=== PATIENT | male | born 1985 | race American Indian/Alaskan Native ===

== ENCOUNTER 2017-02-22 10:02 | Emergency (ER) | payer BC ==
[2017-02-22 10:18] VITALS: BP 135/69
--- NOTE | 2017-02-22 11:05 | Emergency Department Report ---
HPI - General Chief Complaint: High BP Time Seen by Provider: 02/22/17 10:27 - HPI HPI: Patient here reports that he has a headache and is feeling tired. Patient is a employee at the hospital. He said he is concerned about his blood pressure and states he was blowing his nose this morning and and noted some nasal drainage with blood in it. Patient said he does not have high blood pressure but this morning they took it and it was elevated. His blood pressure now is 135/69. Nosebleed was very minimal from his left near and he said his nose was dry and he was blowing his nose. He currently denies any headache, chest pain, dizziness or visual difficulties. Denies any shortness of breath. He said his headache was to the front of his head and it was 5 out of 10. Patient states that his primary care physician is Dr. Larson. Patient does have a family history of high blood pressure. ED Past Medical Hx - Past Medical History Previous Medical History?: No - Surgical History Past Surgical History?: Yes Additional Surgical History: abscess from back - Family History Family history: hypertension - Social History Smoking Status: Never Smoker Substance Use Type: Non Opiate Pain - Medications Home Medications: Home Medications Medication Instructions Recorded Confirmed Last Taken Type HYDROcodone/APAP 5-325 [[place] 1 each PO Q6HR PRN #24 tablet 02/25/16 03/09/16 Unknown Rx 5/325] Ibuprofen 800 mg PO PRN 02/25/16 03/09/16 02/24/16 19:00 History 800mg Sulfamethoxazole/Trimethoprim 1 each PO QDAY 03/09/16 03/09/16 Unknown History [Bactrim 400-80 mg] ED Review of Systems ROS: Stated complaint: ELEVATED BLOOD PRESSURE Other details as noted in HPI Comment: All other systems reviewed and negative Constitutional: malaise. denies: chills, fever ENT: epistaxis (episodiccepisodi) Respiratory: no symptoms reported Cardiovascular: denies: chest pain, palpitations, dyspnea on exertion, edema, syncope, paroxysmal nocturnal dyspnea Gastrointestinal: denies: abdominal pain, nausea, vomiting, diarrhea, constipation Musculoskeletal: denies: back pain, arthralgia, myalgia Skin: denies: rash Neurological: headache. denies: numbness, paresthesias, confusion, abnormal gait, vertigo Physical Exam - Physical Exam Vital Signs: Vital Signs 02/22/17 10:13 Temperature 98.6 F Pulse Rate 65 Respiratory 18 Rate Blood Pressure 135/69 O2 Sat by Pulse 98 Oximetry General: This is a 31-year-old obese male that is nontoxic in appearance. Physical Exam: Head: Normocephalic, atraumatic, no abrasion, no bruising and no contusion. Eyes: Biateral pupils equal and reactive to light, bilateral EOM intact.. Bilateral conjunctival and sclera without injection, normal accommodation. No nystagmus Nose: Normal mucosa without any bleeding. Moist. No maxillary or frontal sinus tenderness. Neurological: GCS at 15, Pt is alert and oriented 3 speech is clear period. Bilateral hand hog feeder strong and equal. Normal gait. Negative Romberg and no pronator drift. Normal Reflexes. No motor or sensory deficit Neck: Supple, No Cervical adenopathy, full range of motion and no C-spine tenderness. No swelling or tracheal deviation normal reflexes Back: No vertebral tenderness, no paraspinal tenderness. Ambulates without any difficulties. Cardiovascular: S1, S2. Regular rate and rhythm. No murmur. Capillary refill is less then 3 seconds. Lungs: Clear to auscultate bilaterally. No rhonchi, wheezes or rales. No chest wall tenderness MSK: Strength 5/5 in all extremities. No joint deformity or crepitus. Normal inspection. Full range of motion to all extremities Extremities: No clubbing, cyanosis or edema. +2 pulses. No neurovascular compromise Skin: Clean, dry and intact. No rash or lesions. ED Course Vital Signs 02/22/17 10:13 Temperature 98.6 F Pulse Rate 65 Respiratory 18 Rate Blood Pressure 135/69 O2 Sat by Pulse 98 Oximetry - Reevaluation(s) Reevaluation #1: 02/22/17 11:57 Vision stable throughout ED stay. ED Medical Decision Making - Medical Decision Making ED course: Pt here report that his blood pressure was elevated today and he had one episode of blood in his nasal drainage. He is also complaining that he had headache this morning but upon examination he said his headache was gone. Patient is neurologically intact and his blood pressure stabilized. He does have a family history of high blood pressure coupled with morbid obesity. I discussed with patient that he needs to get him an appointment with his primary care physician and take his blood pressure in the morning and keep a log to take to his primary care visit for evaluation. With him about healthy hard and low-sodium diet with exercise and weight loss. Patient discharged home in stable condition to follow up with his primary care doctor. Critical care attestation.: If time is entered above; I have spent that time in minutes in the direct care of this critically ill patient, excluding procedure time. ED Disposition Clinical Impression: Elevated blood pressure reading, Epistaxis, Obesity, Class III, BMI 40-49.9 ( morbid obesity), Frontal headache Disposition: DC-01 TO HOME OR SELFCARE Is pt being admited?: No Does the pt Need Aspirin: No Condition: Stable Instructions: DASH Eating Plan (ED), Low Sodium Diet (ED), Hypertension (ED), Heart Healthy Diet (ED), Weight Management (ED), Weight Loss Tips for Athletes ( ED), Obesity (ED) Additional Instructions: He is follow information given on weight loss. Take your blood pressure daily and keep a log and schedule appointments primary care physician in 7 days. Referrals: MERARY LARSON MD [Primary Care Provider] - 03/01/17 Forms: Work/School Release Form(ED)
== END 2017-02-22 12:42 | disposition home or self-care (01) ==
LOC: ED 10:02
DX: R03.0 Elevated blood-pressure reading, without diagnosis of hypertension (principal); R51 Headache; R04.0 Epistaxis; E66.01 Morbid (severe) obesity due to excess calories; Z68.41 Body mass index [BMI] 40.0-44.9, adult
CPT/HCPCS: 99282

== ENCOUNTER 2018-05-08 11:36 | Emergency (ER) | payer BC ==
[2018-05-08 11:46] VITALS: BP 130/87
--- NOTE | 2018-05-08 12:13 | Emergency Department Report ---
ED ENT HPI - General Chief complaint: Dental/Oral Stated complaint: RT SIDE TOOTH PAIN Time Seen by Provider: 05/08/18 11:54 Source: patient Mode of arrival: Ambulatory Limitations: No Limitations - History of Present Illness Initial comments: This is a 32-year-old -[place] male who presents with right upper tooth and jaw pain for 4 days. Patient states he had a chipped tooth that has intermittent pain that has increased over the past 4 days. Patient reports pain is sharp pain. Pain is constant sharp sensation was Monday. He denies dif ficulty swallowing, drooling, fever. MD complaint: tooth pain Onset/Timin -: days(s) Location: tooth # (#1) Severity: moderate Severity scale (0 -10): 3 Quality: aching Consistency: constant Improves with: none Worsens with: eating Context- Dental: history of dental caries Associated Symptoms: gum swelling, toothache. denies: pain with swallowing, sore throat, tinnitus, hearing loss, discharge from ear, rhinorrhea - Related Data Home Medications Medication Instructions Recorded Confirmed Last Taken Ibuprofen 800 mg PO PRN 02/25/16 03/09/16 02/24/16 19:00 800mg Sulfamethoxazole/Trimethoprim 1 each PO QDAY 03/09/16 03/09/16 Unknown [Bactrim 400-80 mg] Previous Rx's Medication Instructions Recorded Last Taken Type HYDROcodone/APAP 5-325 [[place] 1 each PO Q6HR PRN #24 tablet 02/25/16 Unknown Rx 5/325] Clindamycin [Clindamycin CAP] 300 mg PO Q8H #21 cap 05/08/18 Unknown Rx Naproxen [Naprosyn] 500 mg PO BID #15 tablet 05/08/18 Unknown Rx Nystas/Diphen/Xyl Visc/Mylanta 15 ml MM Q4H PRN #100 ml 05/08/18 Unknown Rx [Magic Mouthwash] Allergies Allergy/AdvReac Type Severity Reaction Status Date / Time No Known Allergies Allergy Verified 02/25/16 14:00 ED Dental HPI - General Chief complaint: Dental/Oral Stated complaint: RT SIDE TOOTH PAIN Time Seen by Provider: 05/08/18 11:54 Source: patient Mode of arrival: Ambulatory Limitations: No Limitations - Related Data Home Medications Medication Instructions Recorded Confirmed Last Taken Ibuprofen 800 mg PO PRN 10/03/09/16 02/24/16 19:00 800mg Sulfamethoxazole/Trimethoprim 1 each PO QDAY 03/09/16 03/09/16 Unknown [Bactrim 400-80 mg] Previous Rx's Medication Instructions Recorded Last Taken Type HYDROcodone/APAP 5-325 [[place] 1 each PO Q6HR PRN #24 tablet 02/25/16 Unknown Rx 5/325] Clindamycin [Clindamycin CAP] 300 mg PO Q8H #21 cap 05/08/18 Unknown Rx Naproxen [Naprosyn] 500 mg PO BID #15 tablet 05/08/18 Unknown Rx Nystas/Diphen/Xyl Visc/Mylanta 15 ml MM Q4H PRN #100 ml 05/08/18 Unknown Rx [Magic Mouthwash] Allergies Allergy/AdvReac Type Severity Reaction Status Date / Time No Known Allergies Allergy Verified 02/25/16 14:00 ED Review of Systems ROS: Stated complaint: RT SIDE TOOTH PAIN Other details as noted in HPI Constitutional: denies: chills, fever ENT: dental pain. denies: ear pain, throat pain Respiratory: denies: cough, shortness of breath, wheezing Cardiovascular: denies: chest pain, palpitations Gastrointestinal: denies: abdominal pain, nausea, diarrhea Neurological: denies: headache, weakness, paresthesias Psychiatric: denies: anxiety, depression ED Past Medical Hx - Past Medical History Previous Medical History?: No - Surgical History Past Surgical History?: Yes Additional Surgical History: abscess from back - Social History Smoking Status: Never Smoker Substance Use Type: None - Medications Home Medications: Home Medications Medication Instructions Recorded Confirmed Last Taken Type HYDROcodone/APAP 5-325 [[place] 1 each PO Q6HR PRN #24 tablet 02/25/16 03/09/16 Unknown Rx 5/325] Ibuprofen 800 mg PO PRN 02/25/16 03/09/16 02/24/16 19:00 History 800mg Sulfamethoxazole/Trimethoprim 1 each PO QDAY 03/09/16 03/09/16 Unknown History [Bactrim 400-80 mg] Clindamycin [Clindamycin CAP] 300 mg PO Q8H #21 cap 05/08/18 Unknown Rx Naproxen [Naprosyn] 500 mg PO BID #15 tablet 05/08/18 Unknown Rx Nystas/Diphen/Xyl Visc/Mylanta 15 ml MM Q4H PRN #100 ml 05/08/18 Unknown Rx [Magic Mouthwash] ED Physical Exam - General Limitations: No Limitations General appearance: alert, in no apparent distress, obese (morbidly obese) - ENT ENT exam: Present: mucous membranes moist, TM's normal bilaterally, normal external ear exam, other (dental caries and partial tooth #1, mucosal swelling and tenderness, 3 mm white canker to mucosa area near #1) ED Course Vital Signs 05/08/18 11:43 Temperature 98 F Pulse Rate 77 Respiratory 18 Rate Blood Pressure 130/87 O2 Sat by Pulse 100 Oximetry ED Medical Decision Making - Medical Decision Making This is a 32-year-old male that presents with toothache and canker for 4 days. Patient is stable and was examined by me. Given Magic mouthwash in ER. Susceptible of dental caries #1 and canker. Discussed plan with patient. Start clindamycin, naproxen, and Magic mouthwash. Discharged home stable. Follow up with dentist. Critical care attestation.: If time is entered above; I have spent that time in minutes in the direct care of this critically ill patient, excluding procedure time. ED Disposition Clinical Impression: Dental caries, Toothache, Canker sore Disposition: - TO HOME OR SELFCARE Is pt being admited?: No Does the pt Need Aspirin: No Condition: Stable Instructions: Dental Caries (ED), Canker Sores (ED), Toothache (ED) Additional Instructions: Complete all days of clindamycin as prescribed for 7 days. Avoid drinking alcohol while taking antibiotics for 24 hours of completion. Follow up with in 24-72 hours. Prescriptions: Clindamycin [Clindamycin CAP] 300 mg PO Q8H #21 cap Naproxen [Naprosyn] 500 mg PO BID #15 tablet Nystas/Diphen/Xyl Visc/Mylanta [Magic Mouthwash] 15 ml MM Q4H PRN #100 ml PRN Reason: Pain , Severe (7-10) Referrals: [facility] [Provider Group] - 3-5 Days [facility] [Provider Group] - 3-5 Days [facility] [Outside] - 3-5 Days [facility] [Outside] - 3-5 Days Forms: Work/School Release Form(ED) Time of Disposition: 12:19
[2018-05-08] MEDS ORDERED: MAGIC MOUTHWASH PO ONE (13:00)
== END 2018-05-08 13:21 | disposition home or self-care (01) ==
LOC: ED 11:36
DX: K12.0 Recurrent oral aphthae (principal); K02.9 Dental caries, unspecified
CPT/HCPCS: 99282

== ENCOUNTER 2018-07-02 11:09 | Emergency (ER) | payer OTHER, BC ==
--- NOTE | 2018-07-02 12:50 | Emergency Department Report ---
Chief Complaint: Back Pain/Injury Stated Complaint: BACK PAIN/MUSCLE PAIN Time Seen by Provider: 07/02/18 11:35 - HPI History of Present Illness: Pt is c/o upper, middle back paraspinal pain that began two days ago Pt was carrying heavy bags and bending over and lifting approx 100 pounds no popping sensation no numbness/tingling, bowel/bladder incontinence, no weakness no previous injury to the back MSE complete MSE screening note: Focused history and physical exam performed. ED Disposition for MSE Condition: Stable
[2018-07-02] MEDS ORDERED: SOLU-Medrol IM ONE (15:02)
[2018-07-02] MEDS ORDERED: ULTRAM PO ONE (15:02)
[2018-07-02] MEDS ORDERED: VALIUM PO ONE (15:02)
[2018-07-02] MEDS ORDERED: IBUPROFEN PO ONE (15:02)
--- NOTE | 2018-07-02 16:08 | Emergency Department Report ---
ED Back Pain/Injury HPI - General Chief Complaint: Back Pain/Injury Stated Complaint: BACK PAIN/MUSCLE PAIN Time Seen by Provider: 07/02/18 11:35 Source: patient Limitations: No Limitations - History of Present Illness Initial Comments: Patient presents to the emergency department with a complaint of mid thoracic left-sided back pain after lifting something at work over the weekend. Patient describes the pain as sharp in nature and is worse with movement. MD Complaint: back pain, back injury -: Sudden Similar Symptoms Previously: No Place: work Radiation: none Severity: moderate Severity scale (0 -10): 5 Quality: sharp Consistency: constant Improves With: sitting upright Worsens With: movement Context: while lifting Associated Symptoms: denies other symptoms - Related Data Home Medications Medication Instructions Recorded Confirmed Last Taken Ibuprofen 800 mg PO PRN 02/25/16 03/09/16 02/24/16 19:00 800mg Sulfamethoxazole/Trimethoprim 1 each PO QDAY 03/09/16 03/09/16 Unknown [Bactrim 400-80 mg] Previous Rx's Medication Instructions Recorded Last Taken Type HYDROcodone/APAP 5-325 [[place] 1 each PO Q6HR PRN #24 tablet 02/25/16 Unknown Rx 5/325] Clindamycin [Clindamycin CAP] 300 mg PO Q8H #21 cap 05/08/18 Unknown Rx Naproxen [Naprosyn] 500 mg PO BID #15 tablet 05/08/18 Unknown Rx Nystas/Diphen/Xyl Visc/Mylanta 15 ml MM Q4H PRN #100 ml 05/08/18 Unknown Rx [Magic Mouthwash] Naproxen [Naprosyn] 500 mg PO BID PRN #20 tablet 07/02/18 Unknown Rx predniSONE [Deltasone] 20 mg PO DAILY #15 tablet 07/02/18 Unknown Rx traMADol [Ultram] 50 mg PO Q6HR PRN #20 tablet 07/02/18 Unknown Rx Allergies Allergy/AdvReac Type Severity Reaction Status Date / Time No Known Allergies Allergy Verified 02/25/16 14:00 ED Review of Systems ROS: Stated complaint: BACK PAIN/MUSCLE PAIN Other details as noted in HPI Comment: All other systems reviewed and negative Constitutional: denies: chills, fever Eyes: denies: eye pain, eye discharge, vision change ENT: denies: ear pain, throat pain Respiratory: denies: cough, shortness of breath, wheezing Cardiovascular: denies: chest pain, palpitations Endocrine: no symptoms reported Gastrointestinal: denies: abdominal pain, nausea, diarrhea Genitourinary: denies: urgency, dysuria Musculoskeletal: back pain. denies: joint swelling, arthralgia Skin: denies: rash, lesions Neurological: denies: headache, weakness, paresthesias Psychiatric: denies: anxiety, depression Hematological/Lymphatic: denies: easy bleeding, easy bruising ED Past Medical Hx - Past Medical History Previous Medical History?: No - Surgical History Past Surgical History?: No Additional Surgical History: abscess from back - Social History Smoking Status: Never Smoker Substance Use Type: None - Medications Home Medications: Home Medications Medication Instructions Recorded Confirmed Last Taken Type HYDROcodone/APAP 5-325 [[place] 1 each PO Q6HR PRN #24 tablet 02/25/16 03/09/16 Unknown Rx 5/325] Ibuprofen 800 mg PO PRN 02/25/16 03/09/16 02/24/16 19:00 History 800mg Sulfamethoxazole/Trimethoprim 1 each PO QDAY 03/09/16 03/09/16 Unknown History [Bactrim 400-80 mg] Clindamycin [Clindamycin CAP] 300 mg PO Q8H #21 cap 05/08/18 Unknown Rx Naproxen [Naprosyn] 500 mg PO BID #15 tablet 05/08/18 Unknown Rx Nystas/Diphen/Xyl Visc/Mylanta 15 ml MM Q4H PRN #100 ml 05/08/18 Unknown Rx [Magic Mouthwash] Naproxen [Naprosyn] 500 mg PO BID PRN #20 tablet 07/02/18 Unknown Rx predniSONE [Deltasone] 20 mg PO DAILY #15 tablet 07/02/18 Unknown Rx traMADol [Ultram] 50 mg PO Q6HR PRN #20 tablet 07/02/18 Unknown Rx ED Physical Exam - General Limitations: No Limitations General appearance: alert, in no apparent distress - Head Head exam: Present: atraumatic, normocephalic - Eye Eye exam: Present: normal appearance, PERRL, EOMI - ENT ENT exam: Present: mucous membranes moist - Neck Neck exam: Present: normal inspection - Respiratory Respiratory exam: Present: normal lung sounds bilaterally. Absent: respiratory distress, wheezes, rales, rhonchi - Cardiovascular Cardiovascular Exam: Present: regular rate, normal rhythm. Absent: systolic murmur, diastolic murmur, rubs, gallop - GI/Abdominal GI/Abdominal exam: Present: soft, normal bowel sounds. Absent: distended, tenderness - Rectal Rectal exam: Present: deferred - Extremities Exam Extremities exam: Present: normal inspection - Back Exam Back exam: Present: other (tenderness to palpation of the left parathoracic region with spasms) - Neurological Exam Neurological exam: Present: alert, oriented X3, CN II-XII intact. Absent: motor sensory deficit - Psychiatric Psychiatric exam: Present: normal affect, normal mood - Skin Skin exam: Present: warm, dry, intact, normal color. Absent: rash ED Course Vital Signs 07/02/18 07/02/18 12:46 15:24 Temperature 97.5 F L Pulse Rate 73 Respiratory 20 16 Rate Blood Pressure 120/76 O2 Sat by Pulse 99 Oximetry Critical care attestation.: If time is entered above; I have spent that time in minutes in the direct care of this critically ill patient, excluding procedure time. ED Disposition Clinical Impression: Upper back strain Disposition: DC-01 TO HOME OR SELFCARE Is pt being admited?: No Does the pt Need Aspirin: No Condition: Stable Instructions: Muscle Strain (ED) Additional Instructions: Return if worse Prescriptions: Naproxen [Naprosyn] 500 mg PO BID PRN #20 tablet PRN Reason: pain predniSONE [Deltasone] 20 mg PO DAILY #15 tablet traMADol [Ultram] 50 mg PO Q6HR PRN #20 tablet PRN Reason: Pain Referrals: JACQUELYN ALLEN MD [Primary Care Provider] - 3-5 Days Forms: Work/School Release Form(ED) Time of Disposition: 16:15
[2018-07-02 16:49] VITALS: BP 120/74
== END 2018-07-02 16:47 | disposition home or self-care (01) ==
LOC: ED 11:09
DX: S29.012A Strain of muscle and tendon of back wall of thorax, initial encounter (principal); X50.0XXA Overexertion from strenuous movement or load, initial encounter; Y93.89 Activity, other specified; Y92.89 Other specified places as the place of occurrence of the external cause; Y99.0 Civilian activity done for income or pay
CPT/HCPCS: 96372; 99282; J2930

== ENCOUNTER 2018-10-26 09:49 | Emergency (ER) | payer BC, OTHER ==
[2018-10-26 09:53] VITALS: BP 145/82
[2018-10-26] MEDS ORDERED: TORADOL IM ONE (10:03)
--- NOTE | 2018-10-26 10:23 | Emergency Department Report ---
Abscess Boil HPI - HPI Chief Complaint: Skin/Abscess/Foreign Body Stated Complaint: ABSCESS UNDER L ARM PIT Time Seen by Provider: 10/26/18 10:03 Duration: 3 Days Location: Upper Extremity History: Yes Pain, No Fever, No Purulent Drainage, No Numbness, No Foreign Body, No Previous History, No Insect Bite HPI: 33-year-old male comes in complaining of an abscess under the left arm. She reports this started one month ago but has just gotten bigger and more painful. Patient does have a past medical history of multiple abscesses with a history of abscess 2016 2004. Patient currently takes no medications has no known drug allergies has last taken Motrin on Monday. Home Medications: Home Medications Medication Instructions Recorded Confirmed Last Taken Ibuprofen 800 mg PO PRN 02/25/16 03/09/16 02/24/16 19:00 800mg Sulfamethoxazole/Trimethoprim 1 each PO QDAY 03/09/16 03/09/16 Unknown [Bactrim 400-80 mg] Previous Rx's Medication Instructions Recorded Last Taken Type HYDROcodone/APAP 5-325 [[place] 1 each PO Q6HR PRN #24 tablet 02/25/16 Unknown Rx 5/325] Naproxen [Naprosyn] 500 mg PO BID #15 tablet 05/08/18 Unknown Rx Nystas/Diphen/Xyl Visc/Mylanta 15 ml MM Q4H PRN #100 ml 05/08/18 Unknown Rx [Magic Mouthwash] predniSONE [Deltasone] 20 mg PO DAILY #15 tablet 07/02/18 Unknown Rx traMADol [Ultram] 50 mg PO Q6HR PRN #20 tablet 07/02/18 Unknown Rx Chlorhexidine Gluconate 10 ml TP QDAY #237 ml 10/26/18 Unknown Rx [Antiseptic Skin Cleanser] Clindamycin [Clindamycin CAP] 300 mg PO Q8H #21 cap 10/26/18 Unknown Rx Naproxen [Naprosyn TAB] 500 mg PO BID PRN #20 tablet 10/26/18 Unknown Rx Allergies/Adverse Reactions: Allergies Allergy/AdvReac Type Severity Reaction Status Date / Time No Known Allergies Allergy Verified 10/26/18 09:49 ED Review of Systems ROS: Stated complaint: ABSCESS UNDER L ARM PIT Other details as noted in HPI Comment: All other systems reviewed and negative Skin: lesions (left axillary) ED Past Medical Hx - Past Medical History Previous Medical History?: No - Surgical History Additional Surgical History: abscess from back - Social History Smoking Status: Never Smoker Substance Use Type: None - Medications Home Medications: Home Medications Medication Instructions Recorded Confirmed Last Taken Type HYDROcodone/APAP 5-325 [[place] 1 each PO Q6HR PRN #24 tablet 02/25/16 03/09/16 Unknown Rx 5/325] Ibuprofen 800 mg PO PRN 02/25/16 03/09/16 02/24/16 19:00 History 800mg Sulfamethoxazole/Trimethoprim 1 each PO QDAY 03/09/16 03/09/16 Unknown History [Bactrim 400-80 mg] Naproxen [Naprosyn] 500 mg PO BID #15 tablet 05/08/18 Unknown Rx Nystas/Diphen/Xyl Visc/Mylanta 15 ml MM Q4H PRN #100 ml 05/08/18 Unknown Rx [Magic Mouthwash] predniSONE [Deltasone] 20 mg PO DAILY #15 tablet 07/02/18 Unknown Rx traMADol [Ultram] 50 mg PO Q6HR PRN #20 tablet 07/02/18 Unknown Rx Chlorhexidine Gluconate 10 ml TP QDAY #237 ml 10/26/18 Unknown Rx [Antiseptic Skin Cleanser] Clindamycin [Clindamycin CAP] 300 mg PO Q8H #21 cap 10/26/18 Unknown Rx Naproxen [Naprosyn TAB] 500 mg PO BID PRN #20 tablet 10/26/18 Unknown Rx ED Abscess Boil Physical Exam - Exam General: Vital signs noted. No distress. Alert and acting appropriately. Size: 2 cm Exam: Yes Tenderness, Yes Fluctuance, Yes Normal Neurologic Exam, Yes Normal Circulation, No Surrounding Cellulites/Erythema, No Lymphangitis, No Crepitation, No Heart Murmur I & D Note - I & D Note I & D Note: DATE OF PROCEDURE:10/26/2018. PREOPERATIVE DIAGNOSES: 1.soft tissue infection. 2. soft tissue infection. POSTOPERATIVE DIAGNOSES: Left axillary abscess .........soft tissue infection. Infection appeared to be contained to subcutaneous tissue and there was no evidence of necrotizing soft tissue infection including myonecrosis. OPERATION PERFORMED: Incision and drainage of ..... soft tissue abscess. Provider: Brooke Holyfield, PA-C. ANESTHESIA: Local. DESCRIPTION OF PROCEDURE: The patient was prepped and draped. Seropurulent, somewhat bloody fluid was noted. The infection appeared contained to a golf ball-sized area in the subcutaneous tissues above the fascia. There was no evidence of myonecrosis, penetration of the fascia or significant extent along the fascia of the infection. We cleaned the area with Betadine and then packed the wound .......... Dry dressings were applied. The patient appeared to tolerate the procedure well. ED Course Vital Signs 10/26/18 09:51 Temperature 97.9 F Pulse Rate 95 H Respiratory 18 Rate Blood Pressure 145/82 O2 Sat by Pulse 98 Oximetry Critical care attestation.: If time is entered above; I have spent that time in minutes in the direct care of this critically ill patient, excluding procedure time. ED Medical Decision Making - Medical Decision Making 33-year-old male comes in for a left axillary abscess. Toradol 60 mg IM with an incision and drainage procedure. Patient be placed on clindamycin culture of the wound has been sent to lab. ED Disposition Clinical Impression: Axillary abscess Disposition: DC-01 TO HOME OR SELFCARE Is pt being admited?: No Does the pt Need Aspirin: No Condition: Stable Instructions: Abscess (ED) Additional Instructions: Complete antibiotics as prescribed. Pain medication as needed. Used to chlorhexidine gluconate wash mix it with year bowel soap and wash under both arms and groin area. 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 Prescriptions: Chlorhexidine Gluconate [Antiseptic Skin Cleanser] 10 ml TP QDAY #237 ml Clindamycin [Clindamycin CAP] 300 mg PO Q8H #21 cap Naproxen [Naprosyn TAB] 500 mg PO BID PRN #20 tablet PRN Reason: pain Referrals: JACQUELYN ALLEN MD [Staff Physician] - 3-5 Days Forms: Work/School Release Form(ED)
== END 2018-10-26 12:00 | disposition home or self-care (01) ==
LOC: ED 09:49 → EEVIPCON 09:49 → ED 12:00
DX: L02.412 Cutaneous abscess of left axilla (principal); Z79.899 Other long term (current) drug therapy
CPT/HCPCS: 10060; 87116; 96372; 99282; J1885

== ENCOUNTER 2019-03-22 12:32 | Outpatient (CLI) | payer BC ==
[2019-03-22 13:12] LABS: Basophils % (Auto) 0.5 % (0.0-1.8); Eosinophils # (Auto) 0.1 K/mm3 (0.0-0.4); Eosinophils % (Auto) 0.9 % (0.0-4.3); Hematocrit 42.1 % (35.5-45.6); Hemoglobin 13.6 gm/dl (11.8-15.2); Lymphocytes # (Auto) 2.6 K/mm3 (1.2-5.4); Lymphocytes % (Auto) 33.5 % (13.4-35.0); Mean Corpuscular HGB Conc 32 % (32-34); Mean Corpuscular Volume 83 fl (84-94); Monocytes # (Auto) 0.6 K/mm3 (0.0-0.8); Monocytes % (Auto) 7.9 % (0.0-7.3); Platelet Count 289 K/mm3 (140-440); Red Blood Count 5.07 M/mm3 (3.65-5.03); Red Cell Distribution Width 14.2 % (13.2-15.2)
[2019-03-22 14:00] LABS: Alanine Aminotransferase 22 units/L (7-56); Albumin 4.3 g/dL (3.9-5); BUN/Creatinine Ratio 9; Blood Urea Nitrogen 9 mg/dL (9-20); Calcium 9.3 mg/dL (8.4-10.2); Hemolysis Index 0; Iron 45 ug/dL (49-181); Total Iron Binding Capacity 295 mcg/dL (250-450)
[2019-03-22 14:07] LABS: Free T4 (Free Thyroxine) 1.08 ng/dL (0.76-1.46)
== END 2019-03-22 12:33 | disposition home or self-care (01) ==
LOC: LAB 12:32
PROVIDERS: ATTEND Surgery
DX: R53.82 Chronic fatigue, unspecified (principal); E66.01 Morbid (severe) obesity due to excess calories
CPT/HCPCS: 36415; 80053; 82607; 82747; 83550; 84439; 84443; 85025

== ENCOUNTER 2019-05-18 11:21 | Emergency (ER) | payer BC ==
[2019-05-18 11:26] VITALS: BP 145/81
--- NOTE | 2019-05-18 11:32 | Event Note ---
ED Screening Note Date of service: 05/18/19 Time: 11:31 ED Screening Note: Pt c/o painful abscess to left axilla x 2 weeks denies fever This initial assessment/diagnostic orders/clinical plan/treatment(s) is/are subject to change based on patients health status, clinical progression and re-assessment by fellow clinical providers in the ED. Further treatment and workup at subsequent clinical providers discretion. Patient/guardian urged not to elope from the ED as their condition may be serious if not clinically assessed and managed. Initial orders include: ACC
--- NOTE | 2019-05-18 14:33 | Emergency Department Report ---
Abscess Boil HPI - HPI Chief Complaint: Skin/Abscess/Foreign Body Stated Complaint: ABSCESS UNDER L ARMPIT Time Seen by Provider: 05/18/19 11:30 Duration: >1 Week (1 month) Location: Upper Extremity (left axilla) Severity: Moderate (10/08) History: Yes Pain (axilla abscess), Yes Previous History (several times), No Fever, No Purulent Drainage, No Numbness, No Foreign Body, No Insect Bite HPI: This is a 33-year-old male here complaining of abscess to left axilla. Patient reports that he has had this several times and had it drained 2 times. He has been to senior sales assistant in the past. Reports that abscess has been there for about a month and is getting worse. Reports pain. Denies any redness. Denies any fever or chills. Home Medications: Home Medications Medication Instructions Recorded Confirmed Last Taken Ibuprofen 800 mg PO PRN 02/25/16 03/09/16 02/24/16 19:00 800 mg Sulfamethoxazole/Trimethoprim 1 each PO QDAY 03/09/16 03/09/16 Unknown [Bactrim 400-80 mg] Previous Rx's Medication Instructions Recorded Last Taken Type HYDROcodone/APAP 5-325 [[place] 1 each PO Q6HR PRN #24 tablet 02/25/16 Unknown Rx 5/325] Naproxen [Naprosyn] 500 mg PO BID #15 tablet 05/08/18 Unknown Rx Nystas/Diphen/Xyl Visc/Mylanta 15 ml MM Q4H PRN #100 ml 05/08/18 Unknown Rx [Magic Mouthwash] predniSONE [Deltasone] 20 mg PO DAILY #15 tablet 07/02/18 Unknown Rx traMADoL [Ultram] 50 mg PO Q6HR PRN #20 tablet 07/02/18 Unknown Rx Chlorhexidine Gluconate 10 ml TP QDAY #237 ml 10/26/18 Unknown Rx [Antiseptic Skin Cleanser] Clindamycin [Clindamycin CAP] 300 mg PO Q8H #21 cap 10/26/18 Unknown Rx Naproxen [Naprosyn TAB] 500 mg PO BID PRN #20 tablet 10/26/18 Unknown Rx Acetaminophen/Codeine [Tylenol 1 tab PO Q6H PRN #12 tab 05/18/19 Unknown Rx /Codeine # 3 tab] Clindamycin [Clindamycin CAP] 300 mg PO Q8H 10 Days #30 cap 05/18/19 Unknown Rx Allergies/Adverse Reactions: Allergies Allergy/AdvReac Type Severity Reaction Status Date / Time No Known Allergies Allergy Verified 10/26/18 09:49 ED Review of Systems ROS: Stated complaint: ABSCESS UNDER L ARMPIT Other details as noted in HPI Constitutional: denies: chills, fever Respiratory: denies: cough, shortness of breath Cardiovascular: denies: chest pain, palpitations, edema, syncope Musculoskeletal: denies: back pain, arthralgia Skin: other (abscess to left axilla) Neurological: denies: headache ED Past Medical Hx - Past Medical History Previous Medical History?: Yes Additional medical history: Recurrent abscess - Surgical History Past Surgical History?: Yes Additional Surgical History: abscess from back - Family History Family history: hypertension - Social History Smoking Status: Never Smoker Substance Use Type: None - Medications Home Medications: Home Medications Medication Instructions Recorded Confirmed Last Taken Type HYDROcodone/APAP 5-325 [Walker 1 each PO Q6HR PRN #24 tablet 02/25/16 03/09/16 Unknown Rx 5/325] Ibuprofen 800 mg PO PRN 02/25/16 03/09/16 02/24/16 19:00 History 800 mg Sulfamethoxazole/Trimethoprim 1 each PO QDAY 03/09/16 03/09/16 Unknown History [Bactrim 400-80 mg] Naproxen [Naprosyn] 500 mg PO BID #15 tablet 05/08/18 Unknown Rx Nystas/Diphen/Xyl Visc/Mylanta 15 ml MM Q4H PRN #100 ml 05/08/18 Unknown Rx [Magic Mouthwash] predniSONE [Deltasone] 20 mg PO DAILY #15 tablet 07/02/18 Unknown Rx traMADoL [Ultram] 50 mg PO Q6HR PRN #20 tablet 07/02/18 Unknown Rx Chlorhexidine Gluconate 10 ml TP QDAY #237 ml 10/26/18 Unknown Rx [Antiseptic Skin Cleanser] Clindamycin [Clindamycin CAP] 300 mg PO Q8H #21 cap 10/26/18 Unknown Rx Naproxen [Naprosyn TAB] 500 mg PO BID PRN #20 tablet 10/26/18 Unknown Rx Acetaminophen/Codeine [Tylenol 1 tab PO Q6H PRN #12 tab 05/18/19 Unknown Rx /Codeine # 3 tab] Clindamycin [Clindamycin CAP] 300 mg PO Q8H 10 Days #30 cap 05/18/19 Unknown Rx ED Abscess Boil Physical Exam - Exam General: Vital signs noted. No distress. Alert and acting appropriately. This is a 33-year-old male in no acute distress. Front/Back of Body, Lg (Color): 1 - Left axillary abscess 2 x 3 cm. Tender to palpate with mild erythema. Positive fluctuance with some induration. No drainage noted Size: 3 cm Exam: Yes Tenderness, Yes Fluctuance, Yes Surrounding Cellulites/Erythema (mild), Yes Normal Neurologic Exam, Yes Normal Circulation, No Lymphangitis, No Crepitation, No Heart Murmur Exam: CV: S1, S2. Regular rate and rhythm. Lungs:CTAB. EXT: Clubbing, cya nosis or edema. Normal pulses I & D Note - I & D Note I & D Note: Incision and drainage of left axilla abscess procedure. Left axilla abscess 2 x 3 cm with mild erythema. Area cleansed with normal saline followed by iodine and repeated with normal saline. 10 ml 0.5% Marcaine injected at the site. #11 blade used to make 0.5 mL incision. He is to breakup loculated area. Large amount of thick serous sanguinous pus from site and I was able to express approximately 5 additional mls. Area cleansed with normal saline and packed with iodoform packing. Sterile dressing placed the site. Patient tolerated procedure well ED Course Vital Signs 05/18/19 11:25 Temperature 98.4 F Pulse Rate 92 H Respiratory 16 Rate Blood Pressure 145/81 O2 Sat by Pulse 96 Oximetry - Reevaluation(s) Reevaluation #1: 05/18/19 16:01 Patient had clindamycin 600 mg by mouth in emergency room. Please see procedure note for incision and drainage Critical care attestation.: If time is entered above; I have spent that time in minutes in the direct care of this critically ill patient, excluding procedure time. ED Medical Decision Making - Medical Decision Making Patient with abscess. Procedure for incision and drainage done an abscess packed with iodoform. Patient tolerated procedure well. Patient to return to emergency room on 05/22/2019 to have packing removed and he voiced understanding. I expressed to him that he needs to take all antibiotics until complete and to follow-up with senior sales assistant as previously to manage recurrent abscess. He voiced understanding. Patient discharged home in stable condition with prescription for Tylenol 3 and clindamycin. Tetanus vaccine given less than 5 years per patient. ED Disposition Clinical Impression: Encounter for incision and drainage procedure, Cellulitis and abscess of upper extremity Disposition: DC- TO HOME OR SELFCARE Is pt being admited?: No Does the pt Need Aspirin: No Condition: Stable Instructions: Abscess Incision and Drainage (ED), Heat Pack Application (ED) Additional Instructions: Please keep affected area clean and dry See Discharge instruction for incision and drainage. Apply Warm compresses to affected area 2-3 times a day. Return in 4 days to have packing removed Referrals: MERARY LARSON MD [Primary Care Provider] - 05/22/19 Forms: Work/School Release Form(ED)
[2019-05-18] MEDS ORDERED: SODIUM CHLORIDE 0.9% IRR 500 ML BOTTLE IR ONE (14:34)
[2019-05-18] MEDS ORDERED: CLINDAMYCIN 300 MG CAP PO ONE (14:34)
[2019-05-18] MEDS ORDERED: BUPIVACAINE/PF (0.5%) 5 MG/1 ML 10 ML VIAL INFILTRATI ONE (15:23)
== END 2019-05-18 16:18 | disposition home or self-care (01) ==
LOC: ED 11:21
DX: L03.112 Cellulitis of left axilla (principal); L02.412 Cutaneous abscess of left axilla; Z79.899 Other long term (current) drug therapy
CPT/HCPCS: 87076; 87116; 87186

== ENCOUNTER → 2019-05-21 06:02 | Emergency (ER) | payer BC | END | disposition home or self-care (01) | LOC: ED 06:02 | DX: Z53.21 Procedure and treatment not carried out due to patient leaving prior to being seen by health care provider (principal) ==

== ENCOUNTER 2020-01-10 08:24 | Emergency (ER) | payer BC ==
[2020-01-10] MEDS ORDERED: LIDOCAINE (2%) 20 MG/1 ML VIAL 20 ML MDV INFILTRATI ONE (08:41)
[2020-01-10] MEDS ORDERED: oxyCODONE /ACETAMINOPHEN 5-325MG TAB PO ONE (08:41)
--- NOTE | 2020-01-10 08:45 | Emergency Department Report ---
- General Chief complaint: Skin/Abscess/Foreign Body Stated complaint: ABSCESS UNDER (L) ARM Time Seen by Provider: 01/10/20 08:33 Source: patient Mode of arrival: Ambulatory Limitations: No Limitations - History of Present Illness Initial comments: Patient is a 34-year-old male presents emergency room with complaints of an abscess to the left axilla that began a week ago. He states that it has been increasing in size and becoming more painful. He states that he has felt chills at home. He denies any drainage, vomiting, any other symptoms. He states that he had it opened and drained in May 2019 and then again in approximately June 2019. He states that he gets them frequently. He states that since June it has been intermittently coming and going but will self resolve with home remedies but he states this time it was getting worse. He denies any past medical history. No allergies to medications. - Related Data Home Medications Medication Instructions Recorded Confirmed Last Taken Ibuprofen 800 mg PO PRN 02/25/16 03/09/16 02/24/16 19:00 800 mg Sulfamethoxazole/Trimethoprim 1 each PO QDAY 03/09/16 03/09/16 Unknown [Bactrim 400-80 mg] Previous Rx's Medication Instructions Recorded Last Taken Type HYDROcodone/APAP 5-325 [[place] 1 each PO Q6HR PRN #24 tablet 02/25/16 Unknown Rx 5/325] Naproxen [Naprosyn] 500 mg PO BID #15 tablet 05/08/18 Unknown Rx Nystas/Diphen/Xyl Visc/Mylanta 15 ml MM Q4H PRN #100 ml 05/08/18 Unknown Rx [Magic Mouthwash] predniSONE [Deltasone] 20 mg PO DAILY #15 tablet 07/02/18 Unknown Rx traMADoL [Ultram] 50 mg PO Q6HR PRN #20 tablet 07/02/18 Unknown Rx Chlorhexidine Gluconate 10 ml TP QDAY #237 ml 10/26/18 Unknown Rx [Antiseptic Skin Cleanser] Clindamycin [Clindamycin CAP] 300 mg PO Q8H #21 cap 10/26/18 Unknown Rx Naproxen [Naprosyn TAB] 500 mg PO BID PRN #20 tablet 10/26/18 Unknown Rx Acetaminophen/Codeine [Tylenol 1 tab PO Q6H PRN #12 tab 05/18/19 Unknown Rx /Codeine # 3 tab] Clindamycin [Clindamycin CAP] 300 mg PO Q8H 10 Days #30 cap 05/18/19 Unknown Rx Acetaminophen/Codeine [Tylenol 1 tab PO Q6H PRN #10 tab 01/10/20 Unknown Rx /Codeine # 3 tab] Clindamycin [Clindamycin CAP] 450 mg PO TID 7 Days #63 capsule 01/10/20 Unknown Rx Sulfamethoxazole/Trimethoprim 1 each PO BID 7 Days #14 tablet 01/10/20 Unknown Rx [Bactrim DS TAB] Allergies Allergy/AdvReac Type Severity Reaction Status Date / Time No Known Allergies Allergy Verified 01/10/20 08:28 Abscess Boil HPI - HPI Chief Complaint: Skin/Abscess/Foreign Body Stated Complaint: ABSCESS UNDER (L) ARM Time Seen by Provider: 01/10/20 08:33 Home Medications: Home Medications Medication Instructions Recorded Confirmed Last Taken Ibuprofen 800 mg PO PRN 02/25/16 03/09/16 02/24/16 19:00 800 mg Sulfamethoxazole/Trimethoprim 1 each PO QDAY 03/09/16 03/09/16 Unknown [Bactrim 400-80 mg] Previous Rx's Medication Instructions Recorded Last Taken Type HYDROcodone/APAP 5-325 [[place] 1 each PO Q6HR PRN #24 tablet 02/25/16 Unknown Rx 5/325] Naproxen [Naprosyn] 500 mg PO BID #15 tablet 05/08/18 Unknown Rx Nystas/Diphen/Xyl Visc/Mylanta 15 ml MM Q4H PRN #100 ml 05/08/18 Unknown Rx [Magic Mouthwash] predniSONE [Deltasone] 20 mg PO DAILY #15 tablet 07/02/18 Unknown Rx traMADoL [Ultram] 50 mg PO Q6HR PRN #20 tablet 07/02/18 Unknown Rx Chlorhexidine Gluconate 10 ml TP QDAY #237 ml 10/26/18 Unknown Rx [Antiseptic Skin Cleanser] Clindamycin [Clindamycin CAP] 300 mg PO Q8H #21 cap 10/26/18 Unknown Rx Naproxen [Naprosyn TAB] 500 mg PO BID PRN #20 tablet 10/26/18 Unknown Rx Acetaminophen/Codeine [Tylenol 1 tab PO Q6H PRN #12 tab 05/18/19 Unknown Rx /Codeine # 3 tab] Clindamycin [Clindamycin CAP] 300 mg PO Q8H 10 Days #30 cap 05/18/19 Unknown Rx Acetaminophen/Codeine [Tylenol 1 tab PO Q6H PRN #10 tab 01/10/20 Unknown Rx /Codeine # 3 tab] Clindamycin [Clindamycin CAP] 450 mg PO TID 7 Days #63 capsule 01/10/20 Unknown Rx Sulfamethoxazole/Trimethoprim 1 each PO BID 7 Days #14 tablet 01/10/20 Unknown Rx [Bactrim DS TAB] Allergies/Adverse Reactions: Allergies Allergy/AdvReac Type Severity Reaction Status Date / Time No Known Allergies Allergy Verified 01/10/20 08:28 ED Review of Systems ROS: Stated complaint: ABSCESS UNDER (L) ARM Other details as noted in HPI Comment: All other systems reviewed and negative ED Past Medical Hx - Past Medical History Additional medical history: Recurrent abscess - Surgical History Additional Surgical History: abscess from back - Social History Smoking Status: Never Smoker Substance Use Type: None - Medications Home Medications: Home Medications Medication Instructions Recorded Confirmed Last Taken Type HYDROcodone/APAP 5-325 [[place] 1 each PO Q6HR PRN #24 tablet 02/25/16 03/09/16 Unknown Rx 5/325] Ibuprofen 800 mg PO PRN 02/25/16 03/09/16 02/24/16 19:00 History 800 mg Sulfamethoxazole/Trimethoprim 1 each PO QDAY 03/09/16 03/09/16 Unknown History [Bactrim 400-80 mg] Naproxen [Naprosyn] 500 mg PO BID #15 tablet 05/08/18 Unknown Rx Nystas/Diphen/Xyl Visc/Mylanta 15 ml MM Q4H PRN #100 ml 05/08/18 Unknown Rx [Magic Mouthwash] predniSONE [Deltasone] 20 mg PO DAILY #15 tablet 07/02/18 Unknown Rx traMADoL [Ultram] 50 mg PO Q6HR PRN #20 tablet 07/02/18 Unknown Rx Chlorhexidine Gluconate 10 ml TP QDAY #237 ml 10/26/18 Unknown Rx [Antiseptic Skin Cleanser] Clindamycin [Clindamycin CAP] 300 mg PO Q8H #21 cap 10/26/18 Unknown Rx Naproxen [Naprosyn TAB] 500 mg PO BID PRN #20 tablet 10/26/18 Unknown Rx Acetaminophen/Codeine [Tylenol 1 tab PO Q6H PRN #12 tab 05/18/19 Unknown Rx /Codeine # 3 tab] Clindamycin [Clindamycin CAP] 300 mg PO Q8H 10 Days #30 cap 05/18/19 Unknown Rx Acetaminophen/Codeine [Tylenol 1 tab PO Q6H PRN #10 tab 01/10/20 Unknown Rx /Codeine # 3 tab] Clindamycin [Clindamycin CAP] 450 mg PO TID 7 Days #63 capsule 01/10/20 Unknown Rx Sulfamethoxazole/Trimethoprim 1 each PO BID 7 Days #14 tablet 01/10/20 Unknown Rx [Bactrim DS TAB] ED Physical Exam - General Limitations: No Limitations General appearance: alert, in no apparent distress - Head Head exam: Present: atraumatic, normocephalic - Eye Eye exam: Present: normal appearance - ENT ENT exam: Present: mucous membranes moist - Neurological Exam Neurological exam: Present: alert, oriented X3 - Psychiatric Psychiatric exam: Present: normal affect, normal mood - Skin Skin exam: Present: warm, dry, other (4 cm area of induration present to the left axilla with a 2 cm area of central fluctuance, no drainage, no opening, no necrosis, no blistering) ED Course Vital Signs 01/10/20 01/10/20 01/10/20 08:29 08:48 09:48 Temperature 100.0 F H Pulse Rate 88 Respiratory 20 18 18 Rate Blood Pressure 172/90 O2 Sat by Pulse 97 Oximetry 01/10/20 01/10/20 10:54 10:56 Temperature Pulse Rate 86 Respiratory 18 Rate Blood Pressure 151/95 O2 Sat by Pulse 98 Oximetry - I & D Left Arm Type of Procedure: Simple Site: left axilla Blade Size: 11 I & D Procedure: betadine prep, sterile drapes applied, sterile dressing applied Progress: are prepped with betadine, 7 cc of 2% lidocaine without epinephrine used as ane sthetic, Betadine prep again, sterile drapes applied, 2 cm incision made with 11 blade, copious amounts of purulent drainage expressed, irrigated with saline, iodoform gauze placed, patient tolerated well, bleeding controlled, no complications, sterile dressing applied ED Medical Decision Making - Lab Data Vital Signs 01/10/20 01/10/2001/09/20 08:29 08:48 09:48 Temperature 100.0 F H Pulse Rate 88 Respiratory 20 18 18 Rate Blood Pressure 172/90 O2 Sat by Pulse 97 Oximetry 01/10/20 01/10/20 10:54 10:56 Temperature Pulse Rate 86 Respiratory 18 Rate Blood Pressure 151/95 O2 Sat by Pulse 98 Oximetry - Medical Decision Making Patient is a 34-year-old male presents emergency room with complaints of an abscess to the left axilla that began a week ago. He states that it has been increasing in size and becoming more painful. He states that he has felt chills at home. He denies any drainage, vomiting, any other symptoms. He states that he had it opened and drained in May 2019 and then again in approximately Jun. He states that he gets them frequently. He states that since June it has been intermittently coming and going but will self resolve with home remedies but he states this time it was getting worse. He denies any past medical history. No allergies to medications. initial vitals with mild low grade temp and elevated BP. on exam: 4 cm area of induration present to the left axilla with a 2 cm area of central fluctuance, no drainage, no opening, no necrosis, no blistering. I&D performed per procedure note and packing placed. pt given pain medication as he did not drive. pt given prescription for bactrim, clindamycin, tylenol #3. advised pt please take medication as prescribed. Please do not drive, operate heavy machinery, or work while taking pain medication. Keep area clean, dry, covered. May wash around area with soap and water and pat dry. No hot tub, no pool, no soaking in water. Please change dressing once a day. Please return to the emergency room or follow-up with a primary care doctor in the next 2 days to have packing removed and wound recheck. Return to emergency room immediately for any new or worsening symptoms. Critical care attestation.: If time is entered above; I have spent that time in minutes in the direct care of this critically ill patient, excluding procedure time. ED Disposition Clinical Impression: Abscess of left axilla Disposition: - TO HOME OR SELFCARE Is pt being admited?: No Does the pt Need Aspirin: No Condition: Stable Instructions: Abscess Incision and Drainage (ED), Abscess (ED) Additional Instructions: Please take medication as prescribed. Please do not drive, operate heavy machinery, or work while taking pain medication. Keep area clean, dry, covered. May wash around area with soap and water and pat dry. No hot tub, no pool, no soaking in water. Please change dressing once a day. Please return to the emergency room or follow-up with a primary care doctor in the next 2 days to have packing removed and wound recheck. Return to emergency room immediately for any new or worsening symptoms. Prescriptions: Sulfamethoxazole/Trimethoprim [Bactrim DS TAB] 1 each PO BID 7 Days #14 tablet Clindamycin [Clindamycin CAP] 450 mg PO TID 7 Days #63 capsule Acetaminophen/Codeine [Tylenol /Codeine # 3 tab] 1 tab PO Q6H PRN #10 tab PRN Reason: Pain , Severe (7-10) Referrals: MIRANDA KEYES MD [Primary Care Provider] - 2-3 Days Forms: Work/School Release Form(ED) Time of Disposition: 10:29 Print Language: OCCITAN
[2020-01-10 11:25] VITALS: BP 151/95
== END 2020-01-10 10:56 | disposition home or self-care (01) ==
LOC: ED 08:24
DX: L02.412 Cutaneous abscess of left axilla (principal); Z79.899 Other long term (current) drug therapy
CPT/HCPCS: 99282

== ENCOUNTER 2020-01-13 07:50 | Emergency (ER) | payer BC ==
[2020-01-13 07:58] VITALS: BP 147/75
--- NOTE | 2020-01-13 08:26 | Emergency Department Report ---
- General Chief complaint: Skin/Abscess/Foreign Body Stated complaint: FOLLOW UP FOR ABSCESS PACKING Time Seen by Provider: 01/13/20 08:09 Source: patient Mode of arrival: Ambulatory Limitations: No Limitations - History of Present Illness Initial comments: Patient is a 34-year-old male presents emergency room for packing removal. He was evaluated in the emergency department on 01/10/2020 and had I&D at that time. He states that he has been taking his antibiotics. He denies any pus drainage, increased pain, fever, vomiting. He denies any allergies. - Related Data Home Medications Medication Instructions Recorded Confirmed Last Taken Ibuprofen 800 mg PO PRN 02/25/16 03/09/16 02/24/16 19:00 800 mg Sulfamethoxazole/Trimethoprim 1 each PO QDAY 03/09/16 03/09/16 Unknown [Bactrim 400-80 mg] Previous Rx's Medication Instructions Recorded Last Taken Type HYDROcodone/APAP 5-325 [[place] 1 each PO Q6HR PRN #24 tablet 02/25/16 Unknown Rx 5/325] Naproxen [Naprosyn] 500 mg PO BID #15 tablet 05/08/18 Unknown Rx Nystas/Diphen/Xyl Visc/Mylanta 15 ml MM Q4H PRN #100 ml 05/08/18 Unknown Rx [Magic Mouthwash] predniSONE [Deltasone] 20 mg PO DAILY #15 tablet 07/02/18 Unknown Rx traMADoL [Ultram] 50 mg PO Q6HR PRN #20 tablet 07/02/18 Unknown Rx Chlorhexidine Gluconate 10 ml TP QDAY #237 ml 10/26/18 Unknown Rx [Antiseptic Skin Cleanser] Clindamycin [Clindamycin CAP] 300 mg PO Q8H #21 cap 10/26/18 Unknown Rx Naproxen [Naprosyn TAB] 500 mg PO BID PRN #20 tablet 10/26/18 Unknown Rx Acetaminophen/Codeine [Tylenol 1 tab PO Q6H PRN #12 tab 05/18/19 Unknown Rx /Codeine # 3 tab] Clindamycin [Clindamycin CAP] 300 mg PO Q8H 10 Days #30 cap 05/18/19 Unknown Rx Acetaminophen/Codeine [Tylenol 1 tab PO Q6H PRN #10 tab 01/10/20 Unknown Rx /Codeine # 3 tab] Clindamycin [Clindamycin CAP] 450 mg PO TID 7 Days #63 capsule 01/10/20 Unknown Rx Sulfamethoxazole/Trimethoprim 1 each PO BID 7 Days #14 tablet 01/10/20 Unknown Rx [Bactrim DS TAB] Allergies Allergy/AdvReac Type Severity Reaction Status Date / Time No Known Allergies Allergy Verified 01/10/20 08:28 Abscess Boil HPI - HPI Chief Complaint: Skin/Abscess/Foreign Body Stated Complaint: FOLLOW UP FOR ABSCESS PACKING Time Seen by Provider: 01/13/20 08:09 Home Medications: Home Medications Medication Instructions Recorded Confirmed Last Taken Ibuprofen 800 mg PO PRN 02/25/16 03/09/16 02/24/16 19:00 800 mg Sulfamethoxazole/Trimethoprim 1 each PO QDAY 03/09/16 03/09/16 Unknown [Bactrim 400-80 mg] Previous Rx's Medication Instructions Recorded Last Taken Type HYDROcodone/APAP 5-325 [[place] 1 each PO Q6HR PRN #24 tablet 02/25/16 Unknown Rx 5/325] Naproxen [Naprosyn] 500 mg PO BID #15 tablet 05/08/18 Unknown Rx Nystas/Diphen/Xyl Visc/Mylanta 15 ml MM Q4H PRN #100 ml 05/08/18 Unknown Rx [Magic Mouthwash] predniSONE [Deltasone] 20 mg PO DAILY #15 tablet 07/02/18 Unknown Rx traMADoL [Ultram] 50 mg PO Q6HR PRN #20 tablet 07/02/18 Unknown Rx Chlorhexidine Gluconate 10 ml TP QDAY #237 ml 10/26/18 Unknown Rx [Antiseptic Skin Cleanser] Clindamycin [Clindamycin CAP] 300 mg PO Q8H #21 cap 10/26/18 Unknown Rx Naproxen [Naprosyn TAB] 500 mg PO BID PRN #20 tablet 10/26/18 Unknown Rx Acetaminophen/Codeine [Tylenol 1 tab PO Q6H PRN #12 tab 05/18/19 Unknown Rx /Codeine # 3 tab] Clindamycin [Clindamycin CAP] 300 mg PO Q8H 10 Days #30 cap 05/18/19 Unknown Rx Acetaminophen/Codeine [Tylenol 1 tab PO Q6H PRN #10 tab 01/10/20 Unknown Rx /Codeine # 3 tab] Clindamycin [Clindamycin CAP] 450 mg PO TID 7 Days #63 capsule 01/10/20 Unknown Rx Sulfamethoxazole/Trimethoprim 1 each PO BID 7 Days #14 tablet 01/10/20 Unknown Rx [Bactrim DS TAB] Allergies/Adverse Reactions: Allergies Allergy/AdvReac Type Severity Reaction Status Date / Time No Known Allergies Allergy Verified 01/10/20 08:28 ED Review of Systems ROS: Stated complaint: FOLLOW UP FOR ABSCESS PACKING Other details as noted in HPI Comment: All other systems reviewed and negative ED Past Medical Hx - Past Medical History Previous Medical History?: No Additional medical history: Recurrent abscess - Surgical History Past Surgical History?: No Additional Surgical History: abscess from back - Social History Smoking Status: Never Smoker Substance Use Type: None - Medications Home Medications: Home Medications Medication Instructions Recorded Confirmed Last Taken Type HYDROcodone/APAP 5-325 [[place] 1 each PO Q6HR PRN #24 tablet 02/25/16 03/09/16 Unknown Rx 5/325] Ibuprofen 800 mg PO PRN 02/25/16 03/09/16 02/24/16 19:00 History 800 mg Sulfamethoxazole/Trimethoprim 1 each PO QDAY 03/09/16 03/09/16 Unknown History [Bactrim 400-80 mg] Naproxen [Naprosyn] 500 mg PO BID #15 tablet 05/08/18 Unknown Rx Nystas/Diphen/Xyl Visc/Mylanta 15 ml MM Q4H PRN #100 ml 05/08/18 Unknown Rx [Magic Mouthwash] predniSONE [Deltasone] 20 mg PO DAILY #15 tablet 07/02/18 Unknown Rx traMADoL [Ultram] 50 mg PO Q6HR PRN #20 tablet 07/02/18 Unknown Rx Chlorhexidine Gluconate 10 ml TP QDAY #237 ml 10/26/18 Unknown Rx [Antiseptic Skin Cleanser] Clindamycin [Clindamycin CAP] 300 mg PO Q8H #21 cap 10/26/18 Unknown Rx Naproxen [Naprosyn TAB] 500 mg PO BID PRN #20 tablet 10/26/18 Unknown Rx Acetaminophen/Codeine [Tylenol 1 tab PO Q6H PRN #12 tab 05/18/19 Unknown Rx /Codeine # 3 tab] Clindamycin [Clindamycin CAP] 300 mg PO Q8H 10 Days #30 cap 05/18/19 Unknown Rx Acetaminophen/Codeine [Tylenol 1 tab PO Q6H PRN #10 tab 01/10/20 Unknown Rx /Codeine # 3 tab] Clindamycin [Clindamycin CAP] 450 mg PO TID 7 Days #63 capsule 01/10/20 Unknown Rx Sulfamethoxazole/Trimethoprim 1 each PO BID 7 Days #14 tablet 01/10/20 Unknown Rx [Bactrim DS TAB] ED Physical Exam - General Limitations: No Limitations General appearance: alert, in no apparent distress - Head Head exam: Present: atraumatic, normocephalic - Eye Eye exam: Present: normal appearance - ENT ENT exam: Present: mucous membranes moist - Neurological Exam Neurological exam: Present: alert, oriented X3 - Psychiatric Psychiatric exam: Present: normal affect, normal mood - Skin Skin exam: Present: warm, dry, other (1 cm incision present to the left axilla with packing in place, no erythema, no edema, no fluctuance, no drainage, no increased warmth) ED Course Vital Signs 01/13/20 01/13/20 07:55 08:34 Temperature 98.2 F Pulse Rate 89 89 Respiratory 16 18 Rate Blood Pressure 147/75 [Right] O2 Sat by Pulse 97 99 Oximetry ED Medical Decision Making - Medical Decision Making Patient is a 34-year-old male presents emergency room for packing removal. He was evaluated in the emergency department on 01/10/2020 and had I&D at that time. He states that he has been taking his antibiotics. He denies any pus drainage, increased pain, fever, vomiting. He denies any allergies. VSS. on exam: 1 cm incision present to the left axilla with packing in place, no erythema, no edema, no fluctuance, no drainage, no increased warmth. Packing removed without any difficulty or complications. There is no purulent drainage or bleeding. Wound irrigated with saline and scrubbed with Betadine. Sterile dressing applied. There is no signs of recurrent abscess at this time. There are no signs of cellulitis. Discussed wound care with patient. Advised patient to please continue to keep area clean, dry, covered. May wash with soap and water twice a day and pat dry. No hot tub, no pool, no soaking in water. Showering is fine. Please complete your course of antibiotics. Follow-up with a primary care doctor for reexamination. Return to emergency room immediately for any new or worsening symptoms. Critical care attestation.: If time is entered above; I have spent that time in minutes in the direct care of this critically ill patient, excluding procedure time. ED Disposition Clinical Impression: Abscess packing removal Disposition: DC-01 TO HOME OR SELFCARE Is pt being admited?: No Does the pt Need Aspirin: No Condition: Stable Instructions: Acute Wound Care (ED) Additional Instructions: please continue to keep area clean, dry, covered. May wash with soap and water twice a day and pat dry. No hot tub, no pool, no soaking in water. Showering is fine. Please complete your course of antibiotics. Follow-up with a primary care doctor for reexamination. Return to emergency room immediately for any new or worsening symptoms. Referrals: PRIMARY CARE [Primary Care Provider] - 2-3 Days Time of Disposition: 08:26 Print Language: [place]
== END 2020-01-13 08:34 | disposition home or self-care (01) ==
LOC: ED 07:50
DX: L02.412 Cutaneous abscess of left axilla (principal); Z48.00 Encounter for change or removal of nonsurgical wound dressing; Z79.899 Other long term (current) drug therapy

== ENCOUNTER 2020-01-24 06:14 | Emergency (ER) | payer BC ==
[2020-01-24 06:28] VITALS: BP 133/82
--- NOTE | 2020-01-24 08:40 | Emergency Department Report ---
ED Recheck HPI - General Chief Complaint: Wound/Laceration Stated Complaint: REMOVE PACKING FROM WOUND Time Seen by Provider: 01/24/20 08:25 Source: patient Mode of arrival: Ambulatory Limitations: No Limitations - History of Present Illness Initial Comments: 34-year-old -[place] male well-known to this provider presents to the emergency room for packing removal from lower left back. Patient states that he was here since 01/21/2020 for an abscess that was packed. Patient states he has been taking his antibiotics as prescribed pain medication as needed. He does report he went to his primary care provider yesterday they placed him on another prescription for Bactrim and a referral to dermatology. Patient reports that the wound is healing he has been changing his dressing denies any odor to his wound. Patient denies any fever chills no nausea no vomiting. MD Complaint: wound re-check Returns Today for: wound recheck Symptoms Since Prior Visit: no new symptoms Context: planned re-check Associated Symptoms: none - Related Data Home Medications Medication Instructions Recorded Confirmed Last Taken Ibuprofen 800 mg PO PRN 02/25/16 03/09/16 02/24/16 19:00 800 mg Previous Rx's Medication Instructions Recorded Last Taken Type Naproxen [Naprosyn] 500 mg PO BID #15 tablet 05/08/18 Unknown Rx Naproxen [Naprosyn TAB] 500 mg PO BID PRN #20 tablet 10/26/18 Unknown Rx Acetaminophen/Codeine [Tylenol 1 tab PO Q6H PRN #12 tab 05/18/19 Unknown Rx /Codeine # 3 tab] Acetaminophen/Codeine [Tylenol 1 tab PO Q6H PRN #10 tab 01/10/20 Unknown Rx /Codeine # 3 tab] Ciprofloxacin HCl [Ciprofloxacin 500 mg PO Q12HR #14 tab 01/21/20 Unknown Rx TAB] HYDROcodone/APAP 5-325 [[place] 1 each PO Q6HR PRN #24 tablet 01/21/20 Unknown Rx 5-325 mg TAB] Sulfamethoxazole/Trimethoprim 1 each PO BID #14 tablet 01/21/20 Unknown Rx [Bactrim DS TAB] Allergies Allergy/AdvReac Type Severity Reaction Status Date / Time No Known Allergies Allergy Verified 01/10/20 08:28 ED Review of Systems ROS: Stated complaint: REMOVE PACKING FROM WOUND Other details as noted in HPI ED Past Medical Hx - Past Medical History Previous Medical History?: Yes Additional medical history: Recurrent abscess - Surgical History Past Surgical History?: Yes Additional Surgical History: abscess from back - Social History Smoking Status: Never Smoker Substance Use Type: None - Medications Home Medications: Home Medications Medication Instructions Recorded Confirmed Last Taken Type Ibuprofen 800 mg PO PRN 02/25/16 03/09/16 02/24/16 19:00 History 800 mg Naproxen [Naprosyn] 500 mg PO BID #15 tablet 05/08/18 Unknown Rx Naproxen [Naprosyn TAB] 500 mg PO BID PRN #20 tablet 10/26/18 Unknown Rx Acetaminophen/Codeine [Tylenol 1 tab PO Q6H PRN #12 tab 05/18/19 Unknown Rx /Codeine # 3 tab] Acetaminophen/Codeine [Tylenol 1 tab PO Q6H PRN #10 tab 01/10/20 Unknown Rx /Codeine # 3 tab] Ciprofloxacin HCl [Ciprofloxacin 500 mg PO Q12HR #14 tab 01/21/20 Unknown Rx TAB] HYDROcodone/APAP 5-325 [[place] 1 each PO Q6HR PRN #24 tablet 01/21/20 Unknown Rx 5-325 mg TAB] Sulfamethoxazole/Trimethoprim 1 each PO BID #14 tablet 01/21/20 Unknown Rx [Bactrim DS TAB] ED Physical Exam - General Limitations: No Limitations General appearance: alert, in no apparent distress - Head Head exam: Present: atraumatic, normocephalic - Neurological Exam Neurological exam: Present: alert, oriented X3, normal gait - Expanded Skin Exam Expanded Distribution of rash: back (Left side mid to lower back with a eraser size ope adair where packing was removed clean granulated tissue no active discharge no foul smell mild tenderness to touch no surrounding erythematous) ED Course Vital Signs 01/24/20 06:27 Temperature 98.4 F Pulse Rate 84 Respiratory 18 Rate Blood Pressure 133/82 [Left] O2 Sat by Pulse 97 Oximetry ED Recheck MDM - Differential Diagnosis Wound Recheck - Medical Decision Making 34-year-old -[place] male well-known to this provider presents to the emergency room for packing removal from lower left back. Patient states that he was here since 01/21/2020 for an abscess that was packed. Patient states he has been taking his antibiotics as prescribed pain medication as needed. He does report he went to his primary care provider yesterday they placed him on another prescription for Bactrim and a referral to dermatology. Patient reports that the wound is healing he has been changing his dressing denies any odor to his wound. Patient denies any fever chills no nausea no vomiting. Packing was removed clean sterile dressing placed. Encourage patient to continue to do dressing changes twice a day completed antibiotics follow-up with dermatology. Also encourage patient to watch his diet as this is his fifth time he states that he has been Critical care attestation.: If time is entered above; I have spent that time in minutes in the direct care of this critically ill patient, excluding procedure time. ED Disposition Clinical Impression: Abscess, Abscess packing removal, Severely overweight Disposition: DC- TO HOME OR SELFCARE Is pt being admited?: No Does the pt Need Aspirin: No Condition: Stable Instructions: Obesity (ED) Additional Instructions: Continue with all antibiotics as prescribed. Continue with dressing changes follow-up with dermatology watcher diet. Referrals: PRIMARY CAREMD [Primary Care Provider] - 3-5 Days
== END 2020-01-24 08:58 | disposition home or self-care (01) ==
LOC: ED 06:14
DX: L02.212 Cutaneous abscess of back [any part, except buttock and flank] (principal); E66.3 Overweight; Z48.02 Encounter for removal of sutures
CPT/HCPCS: 99282

== ENCOUNTER 2020-06-08 13:23 | Emergency (ER) | payer BC ==
[2020-06-08 13:32] VITALS: BP 119/83
[2020-06-08] MEDS ORDERED: LIDOCAINE (2%) 20 MG/1 ML VIAL 20 ML MDV INFILTRATI STA (14:44)
--- NOTE | 2020-06-08 16:12 | Emergency Department Report ---
- General Chief complaint: Skin/Abscess/Foreign Body Stated complaint: HS FLARE UP/ABSCESS RT AXILLA Time Seen by Provider: 06/08/20 14:07 Source: patient Mode of arrival: Ambulatory Limitations: No Limitations - History of Present Illness Initial comments: 34-year-old with [place] male past medical history of hidradenitis suppurativa presents emerged department complaining of a flareup on his right axillary region. States he usually gets these hidradenitis to the left but has had a corrected with surgery via a enterprise application architect. Over the last year reports having 4 episodes on the right axilla that usually spontaneously resolves or spontaneously opens and fluid evacuated. MD complaint: abscess/boil Tetanus Up to Date: no Severity: mild, moderate Quality: dull Consistency: constant Improves with: none Worsens with: none Context: none Associated symptoms: denies other symptoms Treatments Prior to Arrival: none - Related Data Home Medications Medication Instructions Recorded Confirmed Last Taken Ibuprofen 800 mg PO PRN 02/25/16 03/09/16 02/24/16 19:00 800 mg Previous Rx's Medication Instructions Recorded Last Taken Type Naproxen [Naprosyn] 500 mg PO BID #15 tablet 05/08/18 Unknown Rx Naproxen [Naprosyn TAB] 500 mg PO BID PRN #20 tablet 10/26/18 Unknown Rx Acetaminophen/Codeine [Tylenol 1 tab PO Q6H PRN #10 tab 01/10/20 Unknown Rx /Codeine # 3 tab] Ciprofloxacin HCl [Ciprofloxacin 500 mg PO Q12HR #14 tab 01/21/20 Unknown Rx TAB] HYDROcodone/APAP 5-325 [[place] 1 each PO Q6HR PRN #24 tablet 01/21/20 Unknown Rx 5-325 mg TAB] Sulfamethoxazole/Trimethoprim 1 each PO BID #14 tablet 01/21/20 Unknown Rx [Bactrim DS TAB] Acetaminophen/Codeine [Tylenol 1 tab PO Q6H PRN #12 tab 06/08/20 Unknown Rx /Codeine # 3 tab] Chlorhexidine Gluconate 5 ml TP TID #240 liquid 06/08/20 Unknown Rx [Antiseptic Skin Cleanser] Sulfamethoxazole/Trimethoprim 1 each PO BID #20 tablet 06/08/20 Unknown Rx [Bactrim DS TAB] cephALEXin [Keflex] 500 mg PO Q6HR #40 capsule 06/08/20 Unknown Rx Allergies Allergy/AdvReac Type Severity Reaction Status Date / Time No Known Allergies Allergy Verified 01/10/20 08:28 Abscess Boil HPI - HPI Chief Complaint: Skin/Abscess/Foreign Body Stated Complaint: HS FLARE UP/ABSCESS RT AXILLA Time Seen by Provider: 06/08/20 14:07 Home Medications: Home Medications Medication Instructions Recorded Confirmed Last Taken Ibuprofen 800 mg PO PRN 02/25/16 03/09/16 02/24/16 19:00 800 mg Previous Rx's Medication Instructions Recorded Last Taken Type Naproxen [Naprosyn] 500 mg PO BID #15 tablet 05/08/18 Unknown Rx Naproxen [Naprosyn TAB] 500 mg PO BID PRN #20 tablet 10/26/18 Unknown Rx Acetaminophen/Codeine [Tylenol 1 tab PO Q6H PRN #10 tab 01/10/20 Unknown Rx /Codeine # 3 tab] Ciprofloxacin HCl [Ciprofloxacin 500 mg PO Q12HR #14 tab 01/21/20 Unknown Rx TAB] HYDROcodone/APAP 5-325 [[place] 1 each PO Q6HR PRN #24 tablet 01/21/20 Unknown Rx 5-325 mg TAB] Sulfamethoxazole/Trimethoprim 1 each PO BID #14 tablet 01/21/20 Unknown Rx [Bactrim DS TAB] Acetaminophen/Codeine [Tylenol 1 tab PO Q6H PRN #12 tab 06/08/20 Unknown Rx /Codeine # 3 tab] Chlorhexidine Gluconate 5 ml TP TID #240 liquid 06/08/20 Unknown Rx [Antiseptic Skin Cleanser] Sulfamethoxazole/Trimethoprim 1 each PO BID #20 tablet 06/08/20 Unknown Rx [Bactrim DS TAB] cephALEXin [Keflex] 500 mg PO Q6HR #40 capsule 06/08/20 Unknown Rx Allergies/Adverse Reactions: Allergies Allergy/AdvReac Type Severity Reaction Status Date / Time No Known Allergies Allergy Verified 01/10/20 08:28 ED Review of Systems ROS: Stated complaint: HS FLARE UP/ABSCESS RT AXILLA Other details as noted in HPI Comment: All other systems reviewed and negative ED Past Medical Hx - Past Medical History Previous Medical History?: No Additional medical history: Recurrent abscess - Surgical History Past Surgical History?: Yes Additional Surgical History: abscess from back - Social History Smoking Status: Never Smoker Substance Use Type: None - Medications Home Medications: Home Medications Medication Instructions Recorded Confirmed Last Taken Type Ibuprofen 800 mg PO PRN 02/25/16 03/09/16 02/24/16 19:00 History 800 mg Naproxen [Naprosyn] 500 mg PO BID #15 tablet 05/08/18 Unknown Rx Naproxen [Naprosyn TAB] 500 mg PO BID PRN #20 tablet 10/26/18 Unknown Rx Acetaminophen/Codeine [Tylenol 1 tab PO Q6H PRN #10 tab 01/10/20 Unknown Rx /Codeine # 3 tab] Ciprofloxacin HCl [Ciprofloxacin 500 mg PO Q12HR #14 tab 01/21/20 Unknown Rx TAB] HYDROcodone/APAP 5-325 [[place] 1 each PO Q6HR PRN #24 tablet 01/21/20 Unknown Rx 5-325 mg TAB] Sulfamethoxazole/Trimethoprim 1 each PO BID #14 tablet 01/21/20 Unknown Rx [Bactrim DS TAB] Acetaminophen/Codeine [Tylenol 1 tab PO Q6H PRN #12 tab 06/08/20 Unknown Rx /Codeine # 3 tab] Chlorhexidine Gluconate 5 ml TP TID #240 liquid 06/08/20 Unknown Rx [Antiseptic Skin Cleanser] Sulfamethoxazole/Trimethoprim 1 each PO BID #20 tablet 06/08/20 Unknown Rx [Bactrim DS TAB] cephALEXin [Keflex] 500 mg PO Q6HR #40 capsule 06/08/20 Unknown Rx ED Physical Exam - General Limitations: No Limitations General appearance: alert, in no apparent distress - Head Head exam: Present: atraumatic, normocephalic - Eye Eye exam: Present: normal appearance, PERRL, EOMI Pupils: Present: normal accommodation - ENT ENT exam: Present: normal exam, normal orophraynx, mucous membranes moist - Neck Neck exam: Present: normal inspection, full ROM - Respiratory Respiratory exam: Present: normal lung sounds bilaterally. Absent: respiratory distress, wheezes, rales, chest wall tenderness, accessory muscle use - Cardiovascular Cardiovascular Exam: Present: regular rate, normal rhythm. Absent: systolic murmur, diastolic murmur, rubs, gallop - GI/Abdominal GI/Abdominal exam: Present: soft, normal bowel sounds. Absent: distended, tenderness, hyperactive bowel sounds, hypoactive bowel sounds, mass - Rectal Rectal exam: Present: deferred - Extremities Exam Extremities exam: Present: normal inspection - Back Exam Back exam: Present: normal inspection. Absent: CVA tenderness (R), CVA tenderness (L), paraspinal tenderness, vertebral tenderness - Neurological Exam Neurological exam: Present: alert, oriented X3, CN II-XII intact - Psychiatric Psychiatric exam: Present: normal affect, normal mood. Absent: anxious, flat affect - Skin Skin exam: Present: warm, dry, intact, normal color. Absent: rash, cyanosis, erythema ED Course Vital Signs 06/08/20 13:29 Temperature 99.3 F Pulse Rate 73 Respiratory 18 Rate Blood Pressure 119/83 [Right] O2 Sat by Pulse 98 Oximetry - Procedure Description Procedures done: PRE-OP DIAGNOSIS: *Abscess. POST-OP DIAGNOSIS: Same. PROCEDURE: incision and drainage of abscess. Performing Physician/advanced practice provider: Rose Alberto_. . PROCEDURE: A timeout protocol was performed prior to initiating the procedure. The area was prepared and draped in the usual, sterile manner. The site was anesthetized with 2% lidocaine without epinephrine. A linear incision was along the local skin lines was made and the purulent material expressed. The abcess was explored thoroughly and sequestered pockets were opened. Wound was irrigated with normal saline and bleeding was minimal. Packing: None. . Followup: The patient tolerated the procedure well without complications. Standard post-procedure care is explained and return precautions are given. ED Medical Decision Making - Medical Decision Making Obese [place] male with hidradenitis to the right axilla resulting in incision and drainage on today. The wound was irrigated with saline and copious amounts of pus was evacuated. He was advised to keep wound clean antibacterial soap and water and keep dressed and follow-up with his primary care provider for wound reevaluation. Also he requested to not be placed on clindamycin or tetracycline due to it being ineffective with his infection history. Patient states that the Bactrim and Keflex combination works the best for him Critical care attestation.: If time is entered above; I have spent that time in minutes in the direct care of this critically ill patient, excluding procedure time. ED Disposition Clinical Impression: Hidradenitis suppurativa of right axilla Disposition: TO HOME OR SELFCARE Is pt being admited?: No Does the pt Need Aspirin: No Condition: Stable Instructions: Hidradenitis Suppurativa Additional Instructions: Patient to follow-up and 40 hours for wound reevaluation with your primary care provider Prescriptions: Chlorhexidine Gluconate [Antiseptic Skin Cleanser] 5 ml TP TID #240 liquid Sulfamethoxazole/Trimethoprim [Bactrim DS TAB] 1 each PO BID #20 tablet cephALEXin [Keflex] 500 mg PO Q6HR #40 capsule Acetaminophen/Codeine [Tylenol /Codeine # 3 tab] 1 tab PO Q6H PRN #12 tab PRN Reason: moderate to severe pain Referrals: MERARY LARSON MD [Primary Care Provider] - 3-5 Days
== END 2020-06-08 16:48 | disposition home or self-care (01) ==
LOC: ED 13:23
DX: L73.2 Hidradenitis suppurativa (principal); Z79.899 Other long term (current) drug therapy; Z98.890 Other specified postprocedural states
CPT/HCPCS: 99282